=== PATIENT | female | born 1945 | race Caucasian/White ===

== ENCOUNTER 2018-12-19 12:34 | Outpatient (CLI) | payer MEDICARE, OTHER | END 2018-12-19 12:35 | disposition short-term general hospital (02) | LOC: EMS 12:34 | PROVIDERS: ATTEND Surgery | DX: M25.562 Pain in left knee (principal); R53.1 Weakness; M25.462 Effusion, left knee | CPT/HCPCS: A0425; A0427 ==

== ENCOUNTER 2020-04-07 14:16 | Emergency (ER) | payer MEDICARE, OTHER ==
[2020-04-07] MEDS ORDERED: oxyCODONE 5 MG TABLET PO STA (14:38)
--- NOTE | 2020-04-07 14:40 | ED Physician Documentation ---
PD HPI LOWER EXT INJURY - Stated complaint Stated Complaint: RIGHT LEG PX - Chief complaint Chief Complaint: Ext Problem - History obtained from History obtained from: Patient - Additional information Additional information: She had a left knee replacement on January 21 at [facility]. She had been in physical therapy and slowly improving. Last week on she was in physical therapy and had a hard time recovering after that and then started to develop right leg pain and swelling and was referred here for further evaluation and treatment for potential DVT. No history of PE E or DVT. No chest pain or trouble breathing. Review of Systems Constitutional: denies: Fever, Chills Cardiac: denies: Chest pain / pressure, Palpitations Respiratory: denies: Dyspnea, Cough PD PAST MEDICAL HISTORY - Present Medications Home Medications: Ambulatory Orders Medication Instructions Recorded Confirmed Cetirizine [ZyrTEC] 1 tab PO DAILY 04/07/20 04/07/20 PARoxetine [Paxil] 15 mg PO DAILY 04/07/20 04/07/20 amLODIPine [Norvasc] 10 mg PO DAILY 04/07/20 04/07/20 oxyCODONE [Roxicodone] 5 mg PO Q4-6H PRN #20 tablet 04/07/20 - Allergies Allergies/Adverse Reactions: Allergies Allergy/AdvReac Type Severity Reaction Status Date / Time codeine Allergy Unknown Verified 04/07/20 14:25 PD ED PE NORMAL - Vitals Vital signs reviewed: Yes - General General: Alert and oriented X 3, No acute distress - Extremities Extremities: Other (The appearance of the left knee looks appropriate for her postoperative status. She has some pedal edema on the left but actually a little more on the right with an effusion on the right as well. She does have calf tenderness on the right. Nothing tender in the thigh. ) - Neuro Neuro: Alert and oriented X 3, Normal speech Results - Vitals Vitals: Vital Signs - 24 hr 04/07/20 04/07/20 14:22 15:17 Temperature 36 C L Heart Rate 72 67 Respiratory 20 16 Rate Blood Pressure 177/64 H 150/67 H O2 Saturation 98 99 Oxygen O2 Source Room air PD MEDICAL DECISION MAKING - ED course ED course: 75-year-old woman presents with right leg pain which I expect is actually from overuse from arthritis of the right knee because of her recent left knee TKR. But there is a concern for DVT. Verbal report from the bead cutter's shows no DVT but it sounds like she has an effusion of the right knee joint. Departure - Departure Disposition: 01 Home, Self Care Clinical Impression: Pain of lower extremity Qualifiers: Laterality: right Qualified Code(s): M79.604 - Pain in right leg Osteoarthritis of right knee Qualifiers: Osteoarthritis type: primary Qualified Code(s): M17.11 - Unilateral primary osteoarthritis, right knee Condition: Good Record reviewed to determine appropriate education?: Yes Instructions: ED Effusion Knee Prescriptions: oxyCODONE [Roxicodone] 5 mg PO Q4-6H PRN #20 tablet PRN Reason: Pain Comments: As discussed, there is no evidence of right leg DVT today. It seems that the pain you are having is likely from the osteoarthritis of your right knee which is exacerbated by overuse as you recover from the left knee replacement. We are prescribing some oxycodone and you should continue to work with your physical therapist although they may have to decrease activity for a bit. Also recommend you follow-up with your orthopedic surgeon and discuss other options such as an injection in the knee. Return as needed for new or worsening symptoms. Do not drink or drive while taking prescription pain medication.
--- NOTE | 2020-04-07 16:11 | Ultrasound Report ---
PROCEDURE: Duplex Ext Veins Right INDICATIONS: rle pain TECHNIQUE: Real-time imaging, as well as color and pulse Doppler interrogation, were performed of the lower extr emity deep veins from the inguinal ligament to the popliteal fossa. COMPARISON: None. FINDINGS: The deep veins are normally compressible, and free of intraluminal thrombus. Color and pu lse Doppler demonstrate normal phasic intraluminal flow. There is normal augmentation response to di stal compression maneuver. Trace fluid is noted at the medial knee joint. IMPRESSION: No deep venous thrombosis. Reviewed by: Marisa Grider MD on 04/07/2020 4:09 PM PST Approved by: Marisa Grider MD on 04/07/2020 4:09 PM PST Station ID: [id number]
[2020-04-07 16:17] VITALS: BP 162/66
== END 2020-04-07 16:31 | disposition home or self-care (01) ==
LOC: ED 14:16
DX: M79.604 Pain in right leg (principal); M25.461 Effusion, right knee; M17.11 Unilateral primary osteoarthritis, right knee; Z96.652 Presence of left artificial knee joint
CPT/HCPCS: 93971; 99283; 99284; A9270